=== PATIENT | male | born 1960 | race Two or more races ===

== ENCOUNTER 2019-03-28 15:28 | Outpatient (CLI) | payer OTHER | END 2019-03-28 15:42 | disposition home or self-care (01) | LOC: LAB 15:28 | DX: R97.20 Elevated prostate specific antigen [PSA] (principal) ==

== ENCOUNTER 2019-05-02 07:29 | Outpatient (CLI) | payer OTHER | END 2019-05-02 10:11 | disposition home or self-care (01) | LOC: SONOGRAMA 07:29 | DX: R97.20 Elevated prostate specific antigen [PSA] (principal) ==

== ENCOUNTER 2020-08-04 10:00 | Inpatient (IN) | payer OTHER ==
[~2020-08-04] VITALS: Ht 172.7 cm; Wt 70.3 kg
[2020-08-04] MEDS ORDERED: TOPROL XL25 M1 PO (11:47)
[2020-08-04] MEDS ORDERED: TAMS0.4C PO (11:47)
== END 2020-08-15 11:14 | disposition home or self-care (01) | DRG 708 ==
LOC: SURG 08-11 05:20 → O/R 08-11 05:20 → SURH 08-11 07:00 → SURG 08-11 11:28 → SURH 08-11 19:19
PROVIDERS: ADMIT Urology; ATTEND Urology
PROC: 07BC0ZX Excision of Pelvis Lymphatic, Open Approach, Diagnostic (ICD-10-PCS; 2020-08-11)
PROC: 0VT00ZZ Resection of Prostate, Open Approach (ICD-10-PCS; principal; 2020-08-11 07:00)
DX: C61 Malignant neoplasm of prostate (principal); I10 Essential (primary) hypertension